=== PATIENT | female | born 1985 | race Caucasian/White ===

== ENCOUNTER 2017-06-26 16:05 | Inpatient (IN) ==
[2017-06-26] MEDS ORDERED: Ringers Solution, Lactated 1,000 ML ONE (16:54)
[2017-06-26] MEDS ORDERED: Metoclopramide 10 MG/2 ML VIAL IVP ONE (17:03)
[2017-06-26] MEDS ORDERED: Famotidine 20 MG/2 ML VIAL IVP ONE (17:03)
[2017-06-26] MEDS ORDERED: CeFAZolin Pre 2,000 MG/100 ML 2,000 MG/100 ML BAG IVPB ONE (17:03)
--- NOTE | 2017-06-26 17:10 | OB/GYN History & Physical ---
Date of Encounter: 06/26/17 Time of Encounter: 17:00 Assessment and Plan (1) and not yet delivered in third trimester Current visit: Yes Status: Acute (2) 36 weeks gestation of Current visit: Yes Status: Acute (3) Active labor Current visit: Yes Status: Acute Well prepared the patient for repeat low transverse section with right partial salpingectomy Qualifiers: Fetus number: fetus 1 of multiple gestation Qualified Code(s): O60.10X1 - labor with delivery, unspecified trimester, fetus 1 (4) Previous section complicating Current visit: Yes Status: Acute (5) Dichorionic diamniotic twin in third trimester Current visit: Yes Status: Acute (6) Family planning Current visit: Yes Status: Acute History of Present Illness HPI: Ms. Grissom is a 32 year old female 2 para 1 at 36-6/7 weeks twin gestation who was sent over from the office secondary to advanced cervical dilatation with history of previous section. Patient was noted to be 3 cm 100% and 0 station and had been complaining of back pain all day. Patient is a scheduled repeat section at the end of the week. Patient was 1 cm when she was seen last week but was having no contractions on the monitor at that time so she was not sent over. Patient states not really feeling anything in the belly morning back. Upon arrival to labor and delivery patient is noted to be nita every 1-2 minutes. Patient is wanting a tubal ligation she states she is already had a salpingectomy due to an ovarian cyst on her left side this was at the time of her last . She denies any leaking of fluid both babies is still moving well. Infant a is breech infant B was in a transverse plane. Patient last ate approximately 11:30 did discuss with anesthesia they recommended waiting 8 hours if feasible. With the patient nita like she is we will need to discuss with them about going sooner. Patient is Rh+ rubella positive GBS negative Past Med Surg Social Fam HX - Past Medical History Source: patient, old records reviewed Medical history: GERD Psychiatric history: depression - Past Surgical History Surgical History: , other (Left salpingo-oophorectomy, wisdom teeth, Alberto fundoplication) - Social History Smoking Status: Never smoker Smokeless Tobacco Status: No Alcohol use: none Drug use: none Occupational status: employed Current living situation: Home - Independent Activity Level: Independent ambulation Recent Out of Country Travel Within the Last 8 Weeks: No Exposure or Possible Exposure to Illness During Travel: No Obstetrical History - Pregnancies : 2 Para: 1 Livin Review of System OB All systems PM: reviewed and no additional remarkable complaints except as stated Exam - Constitutional Constitutional: well developed, well nourished, average body habitus, mild distress - HEENT HEENT: EOMI, PERRL - Neck Neck exam: full ROM - Lungs Respiratory exam: CTAB - Cardiovascular Cardiovascular exam: RRR - Abdomen Abdomen: Present: bowel sounds normal, gravid - Vagina Vagina: Present: normal moisture - Cervix Dilation: 3 Effacement: 100 Station: 0 - Comments Comments: heart tones 140s reactive to twin A and B contractions every 1-2 minutes Results All other labs normal.
[2017-06-26] MEDS ORDERED: Ringers Solution, Lactated 1,000 ML IVC SCH ×3 (17:15→22:20)
[2017-06-26] MEDS ORDERED: Oxytocin 20 units/ LR 1000 mL 20 UNIT/1,000 ML BAG IVC SCH ×2 (17:15→22:20)
[2017-06-26] MEDS ORDERED: *HR* Morphine Sulfate/PF 5 MG/10 ML AMPUL ONE (17:17)
[2017-06-26] MEDS ORDERED: Ondansetron 4 MG/2 ML VIAL ONE ×2 (17:17→18:10)
[2017-06-26] MEDS ORDERED: EPHEDrine 50 MG/ML VIAL ONE (17:17)
[2017-06-26] MEDS ORDERED: *HR* Phenylephrine 10 MG/ML VIAL ONE (17:17)
[2017-06-26] MEDS ORDERED: *HR* Oxytocin 10 UNIT/ML VIAL IM ONE (17:17)
[2017-06-26] MEDS ORDERED: *HR* FentaNYL (PF) 100 MCG/2 ML VIAL ONE (17:17)
[2017-06-26 17:27] LABS: Basophils # 0.1 K/mcL (0.0-0.2); Basophils % 0.4 %; Eosinophils # 0.1 K/mcL (0.0-0.6); Eosinophils % 0.9 %; Hematocrit 38.4 % (35.3-44.9); Hemoglobin 12.9 g/dL (11.5-15.4); Immature Granulocytes % 1.3 % (0-4); Lymphocytes # 2.4 K/mcL (0.6-4.6); Mean Corpuscular HGB Conc 33.6 g/dL (31.6-35.5); Mean Corpuscular Hemoglobin 30.9 pg (28.0-33.3); Mean Corpuscular Volume 92.1 fL (83.0-100.0); Mean Platelet Volume 11.4 fL (9.4-12.4); Neutrophils # 9.8 K/mcL (1.6-8.9); Platelet Count 129 K/mcL (140-400); Red Blood Count 4.17 M/mcL (3.82-4.97); Red Cell Distribution Width 14.7 % (11.5-14.5); Segmented Neutrophils % 72.4 %
--- NOTE | 2017-06-26 17:32 | Anesthesia Evaluation PreOp ---
Date of Encounter: 06/26/17 Time of Encounter: 17:30 - Past History Planned Operation: Repeat C/S, twins Cardiac History: Denies any Significant Hx Pulmonary History: Denies Any Significant HX PLASTERER STUCCO History: Denies Any Significant HX Other Medical History: Denies Any Significant HX Anesthesia History: No Prior Anesthetic Complications : Yes (36.6) Alcohol Use: none Drug use: none - Meds/Allergy Pre-op Review Medications Reviewed: Yes Allergies Reviewed: Yes Beta Blockers on Current Med List: No Anesthesia Exam Height: 1.8m Weight: 116kg NPO (# of Hours): 6 Pain Scale: 0 Pain Scale Used: Numeric (1 - 10) - HEENT Pupil (Motor): Pupils equal Mallampati: II Teeth: Normal Oral Opening: Greater than 3 - PLASTERER STUCCO LOC: Oriented PLASTERER STUCCO Motor: Normal RUE, Normal LUE, Normal RLE, Normal LLE, Normal Face PLASTERER STUCCO Sensory: Normal: RUE, LUE, RLE, LLE, Face - Cardiac Rhythm: Regular Murmur: None JVD: No Carotid Bruit: No - Pulmonary Breath Sounds: bilateral Clear Respiratory Effort: Symmetrical Anesthesia Assess/Plan ASA Score: 2 Modified Maynor Scale for Level of Consciousness: Cooperative, oriented, and tranquil Anesthetic Plan: General (plan b), Regional (plan a) Autologous Blood: Yes Monitoring Plan: Standard Monitors Recovery Plan: PACU
[2017-06-26] MEDS ORDERED: Ringers Solution, Lactated 2,000 ML ONE (18:31)
--- NOTE | 2017-06-26 19:51 | OB/GYN Procedure Note ---
Section - Date of procedure: 06/26/17 Preop diagnosis: other (Intrauterine at 36-6/7 weeks, twin gestation, previous section 1, active labor, desires sterilization) Post-op diagnosis: same Procedure: repeat low transverse (With right partial salpingectomy) Surgeon: mOer Hawk Estimated blood loss (cc): 500 Shaker Operator: Brandt Roberts (PGY1) Anesthesiologist: Edu Anglin Market Research Consultant: Angel Luis Rivas Anesthesia Type: Spinal section complications: none Disposition: L&D Recovery Room Specimens: Placenta, Right tube segment - (s) A Delivery Date: 06/26/17 Infant Delivery Time: 18:47 Presentation: cherry breech Route of delivery: other (section) Gender: Female Viability: Viable Pounds: 6 Ounces: 9 Gram Weight: 2.97 kg at 1 minute: 9 at 5 minutes: 9 Shoulder Dystocia: not encountered Placenta: spontaneous Cord: 3 umbilical vessels B Infant Delivery Date: 06/26/17 Infant Delivery Time: 18:49 Presentation: footling breech Route of delivery: other (section) Gender: Female Viability: Viable Pounds: 5 Ounces: 2 Gram Weight: 2.32 kg at 1 minute: 9 at 5 minutes: 9 Shoulder Dystocia: not encountered Placenta: spontaneous - Narrative Narrative: Patient is a 32-year-old 2 para 1 at 36 and 6 seconds weeks twin gestation who was sent to labor and delivery from the office secondary to being dilated 3 cm. Patient is a scheduled repeat section later in the week was noted to have made cervical change. Patient states she is not feeling any contractions but then stated she been having back pain all day while at work. Patient was sent to labor and delivery she was nita every 2 minutes after now she was reexamined and patient had made cervical change was now 1 cm. Patient was scheduled and prepped for a repeat section with right salpingectomy. Patient had previously had the left ovary and tube removed at the time of her last and due to a large ovarian cyst. Procedure: Patient was taken to the operating room where spinal anesthesia was found be adequate. She was placed in the dorsal supine position with a leftward tilt prepped and draped in usual fashion. Timeout was then obtained. A Pfannenstiel incision was made with a scalpel and carried down through the underlying tissue to the fascia was then applied. The fascia was nicked in midline extended laterally with the Gutiérrez scissors. The superior and inferior edges of the fascia were grasped tented up and dissected off the rectus muscles. Rectus muscles were in midline parietal peritoneum was identified tented up and entered sharply. This was extended superiorly and inferiorly with Metzenbaum scissors. Bladder blade was inserted we were unable to get the bladder off the lower uterine segment was decided to make an incisional bit higher. An incision was made with a scalpel was noted to muscle was very thin and extended the incision laterally with digital manipulation. The membranes were ruptured clear fluid noted. Infant a was in a cherry breech presentation but was more of the patient's hip applied to the cervix versus the buttocks. The infant was then delivered onto the cervix across the chest and then the head was delivered. The cord was clamped and cut infant was handing off to the waiting pediatric team. We did not need cord blood the membranes were ruptured on baby B clear fluid noted this was also noted to be in a breech presentation by footling breech. The legs were then grasped and brought out through the incision ACROSS the chest and the infant was fully delivered. The cord was clamped and cut and the was then handed off to waiting pediatric team. Infant a was delivered at 1847 and infant B was 1849. Infant a weighed 6 lbs. 9 oz. Apgars 9 at 1 minute and 9 at 5 minute infant B weighed 5 lbs. 2 oz. Apgars 9 at 1 minute and 9 at 5 minutes. Placenta was then delivered spontaneously. Three-vessel cord for both a and B. Uterus was exteriorized and cleaned of all clots and debris the lower uterine segment was then closed using 0 Vicryl in a running stitch. After that the first layer closed she was noted to have a hematoma forming on the right side under the bladder. We had to take the suture out so we could identify with this hematoma was located at. The lower uterine segment was paperthin he could see finger through it but I was able to identify with the bleeding was coming from and we were able to get hemostasis under control. Once we had it under control and no more hematoma formation was noted the lower uterine segment was closed again by an 0 Vicryl in a running locking stitch by a 2 layer closure. We had good hemostasis at this time and the hematoma was not reforming. Attention was then turned to the right fallopian tube at the ampulla region a 2 cm portion of tube was suture ligated with oh plain 2 and the knuckle was excised. Good hemostasis was noted delivery was normal. She did not have a left ovary and tube due to previous excision. Uterus was returned to the abdomen and the gutters cleaned of all clots and debris no active bleeding was noted. The parietal peritoneum was brought together by [id number] suture then the fascia was closed using a #1 stratafix in a running stitch. Good hemostasis was noted in the subcutaneous layer the skin was then closed using a 4-0 Vicryl in a subcutaneous,. A JEANA dressing was then applied and the patient was taken to the recovery room in stable condition. All needles and sponge counts were correct 3 she did receive preoperative antibiotics.
[2017-06-26] MEDS ORDERED: *HR* HYDROmorphone (PF) 1 MG/ML SYRINGE IVP PRN ×2 (19:57)
[2017-06-26] MEDS ORDERED: *HR* Morphine 2 MG/ML SYRINGE IVP PRN (19:57)
--- NOTE | 2017-06-26 21:20 | Anesthesia Evaluation Post Op ---
Date of Encounter: 06/26/17 Time of Encounter: 21:19 - Vital Signs Vital Signs: 109/73 hr 88 spo2 95% - Lungs Lungs: Clear Ascult./Percussion - Airway Airway: Non-obstructed - Cardiovascular Regular Rate, Baseline Rhythm - Mental Status Mental Status: Alert & Oriented, Answers Appropriately - Pain Pain Scale: 0 Pain Scale used: Numeric (1 - 10) - Nausea Vomiting Nausea Vomiting: Not Present - Hydration Hydration: Ice chips, Marcial catheter - Discharge PostOp Status: Transfer Patient to floor
[2017-06-26] MEDS ORDERED: Metoclopramide 10 MG/2 ML VIAL IVP PRN (22:20)
[2017-06-26] MEDS ORDERED: Sennosides 8.6 MG TABLET PO PRN (22:20)
[2017-06-26] MEDS ORDERED: Ondansetron 4 MG/2 ML VIAL IVP PRN (22:20)
[2017-06-26] MEDS: *HR* OxyCODONE/APAP 5/325 TABLET PO PRN (23:06)
[2017-06-27] MEDS: *HR* OxyCODONE/APAP 5/325 TABLET PO PRN ×2 (05:35→15:28)
[2017-06-27 08:12] LABS: Basophils % 0.3 %; Eosinophils # 0.1 K/mcL (0.0-0.6); Eosinophils % 0.8 %; Hematocrit 38.2 % (35.3-44.9); Hemoglobin 12.7 g/dL (11.5-15.4); Immature Granulocytes % 0.7 % (0-4); Lymphocytes # 1.5 K/mcL (0.6-4.6); Lymphocytes % 12.4 %; Mean Corpuscular HGB Conc 33.2 g/dL (31.6-35.5); Mean Corpuscular Hemoglobin 30.2 pg (28.0-33.3); Mean Corpuscular Volume 90.7 fL (83.0-100.0); Mean Platelet Volume 11.8 fL (9.4-12.4); Monocytes % 8.8 %; Neutrophils # 9.1 K/mcL (1.6-8.9); Platelet Count 151 K/mcL (140-400); Red Blood Count 4.21 M/mcL (3.82-4.97); Red Cell Distribution Width 14.4 % (11.5-14.5)
--- NOTE | 2017-06-27 09:25 | OB/GYN Progress Note ---
Date of Encounter: 06/27/17 Time of Encounter: 09:23 - Assessment and Plan (1) Status post repeat low transverse section Current Visit: Yes Status: Acute Continue routine postop/ care possible discharge home tomorrow (2) Breast feeding status of mother Current Visit: Yes Status: Acute support prn Subjective - Subjective Principal diagnosis: Postop/ day 1 repeat c/s twins Interval history: Patient in recliner in nursery with infants. Patient reports pain is well controlled. Patient still on clear liquid diet. Patient reports: voiding normally, pain well controlled, ambulating normally [place]verse: in NICU Objective - Vital Signs Latest vital signs: Vital Signs Temp Pulse Pulse Resp BP Pulse Ox 06/27/17 05:30 98.5 F 80 16 116/76 99 06/27/17 01:20 98.2 F 78 14 114/73 98 06/27/17 00:35 98.3 F 81 14 106/68 98 06/26/17 23:10 98.0 F 90 90 15 108/65 100 06/26/17 22:45 100 06/26/17 22:40 98.3 F 92 16 111/74 100 06/26/17 22:10 98.3 F 94 72 16 121/71 100 Intake and Output 06/26/17 06/27/17 06/27/17 23:59 07:59 15:59 Output Total 760 / 760 Balance -760 / -760 Output: Catheter 760 / 760 Other: Weight 106.623 kg - Exam Lungs: bilateral: normal Chest: Normal S1, Normal S2 Extremities: Present: normal Abdomen: Present: normal appearance, soft Incision: Present: normal, dressed (JEANA dressing) Uterus: Present: normal, firm - Labs Labs: Laboratory Results - last 24 hr 06/26/17 06/27/17 16:30 07:35 WBC 13.5 H 11.8 H RBC 4.17 4.21 Hgb 12.9 12.7 Hct 38.4 38.2 MCV 92.1 90.7 MCH 30.9 30.2 MCHC 33.6 33.2 RDW 14.7 H 14.4 Plt Count 129 L 151 MPV 11.4 11.8 Immature Gran % 1.3 0.7 Seg Neutrophils % 72.4 77.0 Lymphocytes % 18.0 12.4 Monocytes % 7.0 8.8 Eosinophils % 0.9 0.8 Basophils % 0.4 0.3 Neutrophils # 9.8 H 9.1 H Lymphocytes # 2.4 1.5 Monocytes # 1.0 1.0 Eosinophils # 0.1 0.1 Basophils # 0.1 0.0
[2017-06-27] MEDS: Prenatal Vit/FA 1 EACH TABLET PO SCH (09:42)
[2017-06-27] MEDS: Simethicone 80 MG TAB.CHEW PO PRN ×2 (09:43→20:25)
[2017-06-27] MEDS: Ibuprofen 600 MG TABLET PO PRN ×2 (09:48→19:49)
[2017-06-27 20:15] VITALS: BP 104/71
[2017-06-27] MEDS: *HR* OxyCODONE/APAP 10/325 TABLET PO PRN (22:01)
[2017-06-28] MEDS: Prenatal Vit/FA 1 EACH TABLET PO SCH (08:45)
[2017-06-28] MEDS: *HR* OxyCODONE/APAP 5/325 TABLET PO PRN (08:45)
[2017-06-28] MEDS: Simethicone 80 MG TAB.CHEW PO PRN (08:55)
--- NOTE | 2017-06-28 11:11 | Discharge Summary ---
Date of Encounter: 06/28/17 Time of Encounter: 11:09 - Discharge Diagnosis (1) Status post repeat low transverse section Priority: Primary Status: Acute Comments: Pt meeting milestones, Pain managed on po pain medication. Pumping breastmilk. Desires discharge. - Discharge Medications Prescriptions: OxyCODONE/APAP 5/325 [Percocet 5/325 MG] 1 each PO Q4HR PRN #20 tablet PRN Reason: Moderate pain 4-6 Ibuprofen [Motrin] 600 mg PO Q6HR PRN #60 tablet PRN Reason: Cramping Docusate [Colace] 100 mg PO BID #60 capsule Home Medications: Docusate [Colace] 100 mg PO BID #60 capsule 06/28/17 [Rx] Ibuprofen [Motrin] 600 mg PO Q6HR PRN #60 tablet 06/28/17 [Rx] OxyCODONE/APAP 5/325 [Percocet 5/325 MG] 1 each PO Q4HR PRN #20 tablet 06/28/17 [Rx] Vit/FA 1 each PO DAILY tablet 06/28/17 [Rx] Simethicone [Gas-X] 80 mg PO TID PRN tab.chew 06/28/17 [Rx] Allergies/Adverse Reactions: 3 Allergy/AdvReac Type Severity Reaction Status Date / Time No Known Allergies Allergy Verified 06/26/17 20:26 Data Procedures and tests throughout hospitalization: Laboratory Tests 06/26/17 06/27/17 16:30 07:35 WBC 13.5 H 11.8 H RBC 4.17 4.21 Hgb 12.9 12.7 Hct 38.4 38.2 MCV 92.1 90.7 MCH 30.9 30.2 MCHC 33.6 33.2 RDW 14.7 H 14.4 Plt Count 129 L 151 MPV 11.4 11.8 Immature Gran % 1.3 0.7 Seg Neutrophils % 72.4 77.0 Lymphocytes % 18.0 12.4 Monocytes % 7.0 8.8 Eosinophils % 0.9 0.8 Basophils % 0.4 0.3 Neutrophils # 9.8 H 9.1 H Lymphocytes # 2.4 1.5 Monocytes # 1.0 1.0 Eosinophils # 0.1 0.1 Basophils # 0.1 0.0 Date of admission: 06/26/17 16:05 Primary care physician: Guicho Avendaño DO Discharging clinician: Justina Fuller Anticipated date of discharge: 06/28/17 - Patient Status Disposition: Home, Self-Care Condition: Good Functional capacity at discharge: independent ambulation Overall status at discharge: patient is back to baseline - Discharge Instructions Follow Up With: Guicho Avendaño DO [Primary Care Provider] - Omer Hawk DO [Partnered Physician] - - Diet and Activity Activity: resume usual activities as tolerated Diet: regular diet Hospital Course Reason for admission: section Delivery: section Other procedures: tubal ligation complications: none Discharge diagnosis: delivery baby: female Hospital course: Section - Date of procedure: 06/26/17 Preop diagnosis: other (Intrauterine at 36-6/7 weeks, twin gestation, previous section 1, active labor, desires sterilization) Post-op diagnosis: same Procedure: repeat low transverse (With right partial salpingectomy) Surgeon: Omer Hawk Estimated blood loss (cc): 500 Preparation Operator: Brandt Roberts (PGY1) Anesthesiologist: Edu Anglin Ornamenter: Angel Luis Rivas Anesthesia Type: Spinal section complications: none Disposition: L&D Recovery Room Specimens: Placenta, Right tube segment - Infant (s) Infant A Infant Delivery Date: 06/26/17 Infant Delivery Time: 18:47 Presentation: cherry breech Route of delivery: other (section) Gender: Female Viability: Viable Pounds: 6 Ounces: 9 Gram Weight: 2.97 kg at 1 minute: 9 at 5 minutes: 9 Shoulder Dystocia: not encountered Placenta: spontaneous Cord: 3 umbilical vessels B Infant Delivery Date: 06/26/17 Delivery Time: 18:49 Presentation: footling breech Route of delivery: other (section) Gender: Female Viability: Viable Pounds: 5 Ounces: 2 Gram Weight: 2.32 kg at 1 minute: 9 at 5 minutes: 9 Shoulder Dystocia: not encountered Placenta: spontaneous Stable in PP and appropriate for discharge. OAARS reviewed. Time Attestation: Total time spent providing and/or coordinating discharge services: Time Spent: Less than 30 minutes - VTE Documentation of Mechanical Device: Intermittent pneumatic compression device Exam - Constitutional Vitals: Temp Pulse Resp BP Pulse Ox 98.3 F 94 16 104/71 99 06/27/17 20:00 06/27/17 20:00 06/28/17 08:00 06/27/17 20:00 06/27/17 20:00 General appearance IM: A&O X 3 - Respiratory Respiratory exam: Present: CTAB - Cardiovascular Cardiovascular exam IM: Present: RRR - GI/Abdominal GI/Abdominal exam IM: normal bowel sounds, soft Incision: dressed (JEANA in place ) - Uterine Tone: Firm Uterus Position: At Umbilicus - Extremities Exam Extremities exam IM: Present: normal capillary refill, normal inspection - Neurological Exam Neurological exam: normal gait, oriented X3
[2017-06-28] MEDS: Ibuprofen 600 MG TABLET PO PRN (11:13)
[2017-06-28] MEDS: *HR* OxyCODONE/APAP 10/325 TABLET PO PRN (12:53)
== END 2017-06-28 15:00 | disposition home or self-care (01) | DRG 765 ==
LOC: 1NENULAB 16:05 → 1NENUOBS 21:57
PROVIDERS: ADMIT Obstetrics & Gynecology; ATTEND Obstetrics & Gynecology